=== PATIENT | male | born 1960 | race African-American/Black ===

== ENCOUNTER 2016-10-18 19:39 | Inpatient (IN) | payer OTHER ==
[~2016-10-18] VITALS: Ht 188 cm; Wt 63.3 kg
--- NOTE | ~2016-10-18 | HC ---
[facility] [place] [address] CONSULTATION Name: STACY PATEL Room #: 452-P [facility] IN M.R.#: [id number] Admission: 10/18/16 Attend Phys: Sara West MD Discharge: 10/24/16 Date of : 58 Report #: [id number] THIS REPORT FOR: //name// CC: Sujit West PULMONARY CONSULTATION PRIMARY PHYSICIAN: Sara West MD REASON FOR REFERRAL: Acute on chronic respiratory failure. HISTORY OF PRESENT ILLNESS: The patient is a 56-year-old -[place] male who was transferred to the Emergency Room with fever, tachycardia, and respiratory distress. Chest x-ray the ER showed right-sided infiltrates. The patient is admitted for pneumonia. A pulmonary consultation was requested. The patient is not able to provide history. Most of the history is obtained from the records. According to the records, the patient has sustained an anoxic brain injury following cardiac arrest. He has been on vent dependent ever since. A tracheostomy has been placed. The patient has a history of substance abuse including PCP. According to records, the patient was in his usual state of health until the evening of admission, the patient was found to have febrile illness with temperature of 103.8 degrees Fahrenheit, pulse rate of 160, respiratory rate around 40s. He does have DPOA, which is his father. PAST MEDICAL HISTORY: As mentioned above including history of polysubstance abuse including PCP, cardiac arrest, sustaining anoxic brain injury, chronic respiratory failure on mechanical ventilation, status post tracheostomy, PEG tube placement. ALLERGIES: None to medications. MEDICATIONS ON TRANSFER: Include clonidine, Pepcid, Augmentin. FAMILY HISTORY: Noncontributory. SOCIAL HISTORY: As above, otherwise unknown. REVIEW OF SYSTEMS: Deferred. [facility] [address] [place] [address] CONSULTATION Name: STACY PATEL Room #: 452-P [facility] IN .Tony.#: [id number] Admission: 10/18/16 Attend Phys: Sara West MD Discharge: 10/24/16 Date of : 58 Report #: [id number] PHYSICAL EXAMINATION: GENERAL: This patient is not able to provide history. VITAL SIGNS: Temperature was 103.5 degrees Fahrenheit, pulse is 120, respiratory rate is 24, blood pressure is 100/73 mmHg, saturation 98%. HEENT: Normocephalic, atraumatic. NECK: Supple, without any lymphadenopathy or thyromegaly, status post tracheostomy. CHEST: Breath sounds are coarse bilaterally. CARDIOVASCULAR: Heart sounds regular rhythm and rate, no murmurs or gallop. ABDOMEN: Soft, nontender, no organomegaly or masses felt. GENITOURINARY AND RECTAL: Deferred. EXTREMITIES: No cyanosis, clubbing, edema. MUSCULOSKELETAL: Remarkable for marked muscle atrophy with contractures. LABORATORY DATA: Chest x-ray shows a right mid lung field infiltrates. Arterial blood gas revealed pH 7.47, pCO2 of 31, pO2 of 113 on FiO2 of 50%. WBC is 5300 with a 13% bandemia. Platelets are normal. Hemoglobin is 12.6. Electrolytes: Sodium 135, potassium 4.8, chloride 98, CO2 is 25, BUN is 16, creatinine is 0.9. IMPRESSION: 1. Febrile illness in this 56-year-old male with a history of anoxic brain injury, cardiac arrest, now with chronic respiratory failure. Chest x-ray shows right-sided infiltrates. The patient likely has pneumonia. Aspiration ____ gram-negative is suspected. 2. Acute on chronic respiratory failure due to above. He has a tracheostomy tube placed. We will continue mechanical ventilation. Gastric ____ is adequate on FiO2 of 60%. 3. History of cardiac arrest sustaining anoxic brain injury with persistent encephalopathy, although it is felt to be poor. 4. Muscle atrophy due to above. RECOMMENDATION: We would recommend broad-spectrum antibiotics to cover for nosocomial infections including possible aspiration. Gram-negative, anaerobe cover will be helpful. We will continue mechanical ventilation. Wean O2 for saturation 90%. DVT and GI prophylaxis will be addressed. Nutritional support will be instituted once medically stable. Thank you for this consultation. <ELECTRONICALLY SIGNED> By: Chai Kamara MD 10/24/16 1634 [id number] 1735 Chai Kamara MD /nt
--- NOTE | ~2016-10-18 | EKG ---
[place] [address] [facility] [place] [address] ELECTROCARDIOGRAM REPORT Name: DMITRIYTOMMYSTACY Room #: 240-P ADM IN M.R.#: [id number] Admission: 10/18/16 Attend Phys: Sara West MD Discharge: Date of : 58 Report #: [id number] THIS REPORT FOR: //name// [facility] ED Test Date: 2016-10-18 Test Time: 19:44:19 Pat Name: STACY PATEL Department: Room: 240 P Gender: M Enterprise Project Manager: MICHAEL : 1960 Requested By: Sara West Order Number: [id number] MD: Dheeraj Arthur Measurements Intervals [place] Rate: 174 P: 74 DE: 95 QRS: -40 QRSD: 80 T: 21 QT: 278 QTc: 473 Interpretive Statements Supraventricular tachycardia Left axis deviation RSR' in V1 or V2, probably normal variant ST depression, probably rate related Baseline wander in lead(s) V3 No previous ECG available for comparison Electronically Signed On 10-19-2016 14:24:14 ELECTRONIC DATA PROCESSING AUDITOR by Dheeraj Arthur [email or web address] <ELECTRONICALLY SIGNED> By: Dheeraj Arthur MD, [facility] 10/19/16 1424 194 43 Dheeraj Arthur MD, [facility] /EPI
--- NOTE | ~2016-10-18 | HC ---
[facility] [place] [address] CONSULTATION Name: STACY PATEL Room #: 452-P ADM IN M.R.#: [id number] Admission: 10/18/16 Attend Phys: Sara West MD Discharge: Date of : 58 Report #: [id number] THIS REPORT FOR: //name// CC: Sujit West INFECTIOUS DISEASE CONSULTATION REASON FOR CONSULTATION: I was asked to evaluate the patient concerning fever. HISTORY OF PRESENT ILLNESS: The patient was a 56-year-old with anoxic encephalopathy who has been in a chronic vegetative state at [facility]. He remains on the ventilator. He has a PEG tube and an indwelling Barrientos catheter. The patient is unable to give any details. Has had his PEG tube exchanged on 09/22/2016. Developed fever and tachycardia with respiratory distress on 10/18/2016 and was admitted for further evaluation. He was found to have a right lower lobe pneumonia treated with vancomycin and Zosyn. Cultures are still pending by growing gram-negative bacilli from his sputum. Blood cultures remain negative. Urinalysis was unremarkable. He has had no diarrhea or evidence of decubiti. No reported seizure activity. PAST MEDICAL HISTORY: Anoxic brain injury, history of PCP intoxication, substance abuse, cardiac arrest, hypertension, tracheostomy, PEG tube placement. He is on chronic ventilatory requirements. SOCIAL HISTORY: Otherwise unremarkable. FAMILY HISTORY: Not available. REVIEW OF SYSTEMS: As noted above. PHYSICAL EXAMINATION: VITAL SIGNS: He is afebrile; maximum temperature was 101.2 degrees today. His maximum temperature on admission was 102.4 degrees on 10/28/2015. GENERAL: He was nonresponsive. He was in the position. He had contractures of both upper and lower extremities. SKIN: Was intact, no adenopathy. Tracheostomy site was unremarkable. EXTREMITIES: Peripheral IV unremarkable in his upper extremity. LUNGS: Consolidation was heard in the right base posteriorly. CARDIOVASCULAR: Regular without murmur. ABDOMEN: Was soft. PEG site was unremarkable. GENITOURINARY: External genitalia unremarkable with indwelling Barrientos catheter. LABORATORY STUDIES: Sodium 138, potassium 3.3, bicarbonate 22, creatinine 0.6, hemoglobin 8.5, white count 7.4, platelet count 228,000. Vancomycin level 10, [address] [address] CONSULTATION Name: [facility] Room #: [address] [place] [address] IN M.R.#: [id number] Admission: 10/18/16 Attend Phys: Sara West MD Discharge: Date of : 58 Report #: [id number] urinalysis unremarkable. Urine legionella strep pneumo antigen negative. Blood cultures negative. Sputum gram-negative bacilli. No influenza testing done. MRSA screen negative. Chest x-ray, right lower lobe infiltrate. IMPRESSION: A 56-year-old with right lower lobe pneumonia, chronic vent gram-negative organism with persistent fever. I suspect pulmonary source. We will also screen liver function and pancreas levels. Change his IV antibiotics to meropenem and see if this has better activity against the organism from his sputum pending final culture results. <ELECTRONICALLY SIGNED> By: Yong Orozco MD 10/22/16 1027 1644 1820 Yong Orozco MD /nt
--- NOTE | ~2016-10-18 | D ---
[facility] [place] [address] DISCHARGE SUMMARY Name: STACY PATEL Room #: 452-P [facility] IN M.R.#: [id number] Admission: 10/18/16 Attend Phys: Sara West MD Discharge: 10/24/16 Date of : 58 Report #: [id number] THIS REPORT FOR: //name// CC: Sujit West FINAL DIAGNOSES: 1. Healthcare-associated pneumonia. 2. Fever. 3. Chronic ventilator dependence. 4. Chronic respiratory failure. 5. Persistent vegetative state. 6. Hypertension. HOSPITAL COURSE: The patient was admitted from his shelter with fever. X-ray showed a right lower lobe pneumonia. He was treated for healthcare-associated pneumonia. There was a report of vomiting at the facility and he likely had an aspiration pneumonia. No definitive organism was cultured to identify the suspect bug. He still had some low-grade temperature to approximately 100. Dr. Orozco saw him in consultation and adjusted antibiotics. He remained Barrientos and ventilator dependent and total care as usual. He has had a previous brain injury and is in a persistent vegetative state. His blood pressure was elevated and Coreg was added. PHYSICAL EXAMINATION: GENERAL: On the day of discharge, he was at his usual neurologic level, with no significant responses. VITAL SIGNS: Temperature 37.2, pulse 95, respirations 17, blood pressure 135/89 and O2 sat 95% on the ventilator. LUNGS: Clear. HEART: Regular. ABDOMEN: Soft. EXTREMITIES: Showed no edema. He has contractures throughout the extremities. DISPOSITION: He will return to [facility] ventilator unit. Total care ventilator status to remain. No chance of weaning tube feeding and water flushes. I will continue Coreg 12.5 mg b.i.d., Tylenol 650 mg t.i.d., Pepcid and supportive measures. I will ask Dr. Yong Orozco to clarify any further antibiotics for transfer. <ELECTRONICALLY SIGNED> By: Aguila Zee MD 10/24/16 1636 0820 1000 Aguila Zee MD /nt
--- NOTE | ~2016-10-18 | H ---
[facility] [place] [address] HISTORY AND PHYSICAL Name: STACY PATEL Room #: 452-P [facility] IN M.R.#: [id number] Admission: 10/18/16 Attend Phys: Sara West MD Discharge: 10/24/16 Date of : 58 Report #: [id number] THIS REPORT FOR: //name// CC: Sujit West DATE OF SERVICE: 10/18/2016 ATTENDING PHYSICIAN: Sujit Orozco MD. CHIEF COMPLAINT: Fever, tachycardia, and respiratory distress. HISTORY OF PRESENT ILLNESS: This is a 56-year-old gentleman, who has a history of anoxic brain injury and respiratory failure, who has been on the ventilator. He was at [facility] and was noted to have fever with tachycardia and respiratory distress. He was noted to have decreasing oxygen saturation, and was requiring high flow oxygen. The patient was noted to have a temperature of 103. The patient was seen in the emergency room, and on evaluation, he was noted to have new pneumonia with respiratory failure. The patient has now been admitted to the intensive care unit and on IV antibiotics and on the ventilator. He is relatively stable this morning, and his pulse rate is in the 110s, and he is on the ventilator. He does not appear to be in any distress. PAST MEDICAL HISTORY: Significant for history of acute respiratory failure, anoxic brain injury, cardiac arrest, hypertension, history of PCP intoxication, and substance abuse. Tracheostomy and dysphagia. MEDICATIONS: He was on at the [facility] was Augmentin, clonidine, Pepcid, and Tylenol p.r.n. He is not known to be medications. SOCIAL HISTORY: Not known. There is history of PCP use and substance abuse. REVIEW OF SYSTEMS: Not possible. PHYSICAL EXAMINATION: GENERAL: Middle-aged gentleman, who was in bed, did not appear to be in distress. He was unresponsive, but appeared to be in no distress. VITAL SIGNS: His pulse was 111, respiration rate of 18, blood pressure was 115/86. NECK: The patient had a tracheostomy tube. The patient is on the ventilator. LUNGS: Coarse breath sounds bilaterally. HEART: First and second heart sound, which is tachycardic. ABDOMEN: Soft. The patient had a PEG tube in place, and it was nontender. EXTREMITIES: Did not reveal any edema. LABORATORY DATA: On admission, showed pH of 7.4, pCO2 of 31, pO2 of 113, on [facility] [address] [place] [address] HISTORY AND PHYSICAL Name: STACY PATEL Room #: 452-P [facility] IN [facility]#: [id number] Admission: 10/18/16 Attend Phys: Sara West MD Discharge: 10/24/16 Date of : 58 Report #: [id number] FIO2 of 60%. Sodium was 135, potassium 4.8, chloride of 98, bicarbonate of 25, BUN was 16, creatinine of 0.7. Lactic acid was 2.7. White cell count was 5.3, hemoglobin of 12.6, hematocrit of 38.7, and platelet count of 351. Urine was clear. Blood cultures were pending. ASSESSMENT: 1. Respiratory failure. 2. Pneumonia. 3. Anoxic brain injury. 4. Tachycardia. PLAN: To continue with his IV fluids, his IV antibiotics, and to continue on the ventilator. We will have a pulmonary consultation to manage his ventilator and restart his PEG tube feeds. <ELECTRONICALLY SIGNED> By: Sara West MD 10/30/16 1606 0925 1106 Sara Wets MD /nt
[~2016-10-18 19:39] MED LIST: AUGMENTIN 875875 MG PO; CLONIDINE0.1 PER TUBE; DIFLUCAN200 MG PO; ENOXAPARIN40 MG/0.1 SUBQ; PEPCID20 MG PO; VANCOMYCIN HCL1 GM IV; ZOSYN 3.3753.375 GM IV
[2016-10-18 20:11] LABS: HEMATOCRIT 38.7 % (42.0-52.0); HEMOGLOBIN 12.6 gm/dL (14.0-18.0); MCH 22.9 pg (26.0-34.0); MCHC 32.5 % (28.0-37.0); MCV 70.5 fL (80.0-100.0); PLATELET COUNT 351 thou/uL (150-400); RBC 5.49 mil/uL (4.50-6.00); RDW 15.5 % (10.5-14.5); WBC 5.3 thou/uL (4.0-11.0)
[2016-10-18 20:12] LABS: MANUAL DIFF YES
[2016-10-18 20:26] LABS: CALCIUM 9.7 mg/dL (8.5-10.1); CREATININE 0.7 mg/dL (0.6-1.3); POTASSIUM 4.8 mmol/L (3.5-5.1)
[2016-10-18 20:26] LABS: URINE BILIRUBIN NEGATIVE (Negative); URINE BLOOD NEGATIVE (Negative); URINE COLOR YELLOW; URINE GLUCOSE-RANDOM* NEGATIVE (Negative); URINE KETONES NEGATIVE (Negative); URINE LEUKOCYTES-REFLEX NEGATIVE (Negative); URINE PROTEIN (DIPSTICK) NEGATIVE (Negative); URINE SPECIFIC GRAVITY 1.025 (1.003-1.035); URINE UROBILINOGEN 0.2 E.U./dl (0.2-1.0)
[2016-10-18] MEDS ORDERED: PEPCID40 MG PO (20:42)
[2016-10-18 20:44] LABS: ABSOLUTE NEUTROPHILS 3.7 thou/uL (1.4-8.2); HYPOCHROMASIA 1+; IMMATURE MONONUCLEARS 1 %; TOTAL CELL COUNT 100
[2016-10-18 20:45] LABS: ANISOCYTOSIS 1+; LARGE PLATELETS OCCASIONAL
[2016-10-18] MEDS ORDERED: NON-ASPIRIN325 MG PO (20:45)
[2016-10-18 20:49] LABS: ABG SAMPLE TYPE ARTERIAL; BE(vivo) -0.4 mmol/L (-2 to +3); HCO3 22.4 mmol/L (22.0-26.0); LACTATE 2.41 mmol/L (0.5-2.0); O2(CT) 17.4 mL/dL (15.0-23.0); O2Hb 97.9 % (92.0-98.0); PCO2 31.4 mmHg (35.0-45.0); PO2 113.7 mmHg (80.0-100.0); pH 7.472 (7.360-7.450); sO2 98.4 % (92.0-98.0); tCO2 23.4 mmol/L (24.0-30.0)
[2016-10-18 20:51] LABS: STICK SITE R.RADIAL; TIDAL VOLUME 500 ml
[2016-10-19] VITALS (39 sets, daily range): BP systolic 102–138; BP diastolic 69–103
[2016-10-20 04:00] VITALS: BP 129/73
[2016-10-20 07:25] LABS: CALCIUM 8.9 mg/dL (8.5-10.1); CREATININE 0.6 mg/dL (0.6-1.3); POTASSIUM 3.3 mmol/L (3.5-5.1)
[2016-10-20 07:45] VITALS: BP 135/88
[2016-10-20 09:32] LABS: HEMATOCRIT 26.2 % (42.0-52.0); MCH 23.1 pg (26.0-34.0); MCHC 32.3 % (28.0-37.0); MCV 71.5 fL (80.0-100.0); RBC 3.67 mil/uL (4.50-6.00); WBC 7.4 thou/uL (4.0-11.0)
[2016-10-20 09:39] LABS: HEMOGLOBIN 8.5 gm/dL (14.0-18.0)
[2016-10-20 12:00] VITALS: BP 125/81
[2016-10-20 15:45] VITALS: BP 131/81
[2016-10-20 19:23] VITALS: BP 156/101
[2016-10-21 02:36] VITALS: BP 148/93
[2016-10-21 08:00] VITALS: BP 144/98
[2016-10-21 16:30] VITALS: BP 163/96
[2016-10-21 18:34] LABS: ALBUMIN 2.3 g/dL (3.4-5.0); ALKALINE PHOSPHATASE 61 U/L (46-116); DIRECT BILIRUBIN < 0.1 mg/dL (<0.1-0.3); SGOT 10 U/L (15-37); SGPT 17 U/L (30-65); TOTAL BILIRUBIN 0.2 mg/dL (<0.1-1.0); TOTAL PROTEIN 6.9 g/dL (6.4-8.2)
[2016-10-21 19:36] VITALS: BP 125/79
[2016-10-22 03:36] VITALS: BP 130/83
[2016-10-22 05:38] LABS: CREATININE 0.5 mg/dL (0.6-1.3); POTASSIUM 3.8 mmol/L (3.5-5.1)
[2016-10-22 05:39] LABS: ABSOLUTE NEUTROPHILS 4.8 thou/uL (1.4-8.2); BASOPHILS 0.3 % (0.0-2.0); HEMATOCRIT 29.5 % (42.0-52.0); HEMOGLOBIN 9.6 gm/dL (14.0-18.0); MCH 22.7 pg (26.0-34.0); MCHC 32.5 % (28.0-37.0); MCV 69.9 fL (80.0-100.0); MONOCYTES 6.6 % (1.0-8.0); PLATELET COUNT 262 thou/uL (150-400); POLYS 73.1 % (36.0-66.0); RBC 4.23 mil/uL (4.50-6.00); RDW 15.6 % (10.5-14.5); WBC 6.5 thou/uL (4.0-11.0)
[2016-10-22 05:40] LABS: MANUAL DIFF NO
[2016-10-22 07:24] VITALS: BP 139/87
[2016-10-22 07:40] LABS: ANISOCYTOSIS 1+; HYPOCHROMASIA 1+; MICROCYTES 1+
[2016-10-22 11:17] VITALS: BP 155/104
[2016-10-22 14:30] VITALS: BP 149/103
[2016-10-22 16:10] VITALS: BP 128/90
[2016-10-22 19:18] VITALS: BP 141/99
[2016-10-23 04:13] VITALS: BP 138/95
[2016-10-23 07:43] VITALS: BP 148/96
[2016-10-23 08:16] LABS: ABSOLUTE NEUTROPHILS 3.6 thou/uL (1.4-8.2); BASOPHILS 0.5 % (0.0-2.0); EOSINOPHILS 3.2 % (0.0-3.0); HEMATOCRIT 30.1 % (42.0-52.0); HEMOGLOBIN 9.8 gm/dL (14.0-18.0); LYMPHOCYTES 22.7 % (24.0-44.0); MCH 22.7 pg (26.0-34.0); MCHC 32.5 % (28.0-37.0); MCV 69.9 fL (80.0-100.0); MONOCYTES 9.7 % (1.0-8.0); PLATELET COUNT 274 thou/uL (150-400); POLYS 63.9 % (36.0-66.0); RBC 4.31 mil/uL (4.50-6.00); RDW 15.4 % (10.5-14.5); WBC 5.6 thou/uL (4.0-11.0)
[2016-10-23 08:17] LABS: MANUAL DIFF NO
[2016-10-23 08:22] LABS: CALCIUM 9.3 mg/dL (8.5-10.1); CREATININE 0.5 mg/dL (0.6-1.3); POTASSIUM 3.9 mmol/L (3.5-5.1)
[2016-10-23 11:02] VITALS: BP 134/68
[2016-10-23 15:13] VITALS: BP 136/73
[2016-10-23 19:29] VITALS: BP 116/85
[2016-10-24 03:47] VITALS: BP 135/89
[2016-10-24] MEDS ORDERED: CARVEDILOL12.5 MG PO (08:15)
[2016-10-24] MEDS ORDERED: ACETAMINOPHEN325 M1 PO (08:15)
[2016-10-24 09:19] VITALS: BP 132/97
== END 2016-10-24 11:20 | DRG 207 ==
LOC: ER 19:39 → EROBS 20:44 → 4W 20:44 → ICU 23:31 → 4W 10-19 22:34 → EDBD 10-24 11:20 → 4W 10-24 11:20
PROVIDERS: Emergency Medicine; Internal Medicine; Internal Medicine Geriatric Medicine; Internal Medicine Pulmonary Disease; Specialist
PROC: 5A1955Z Respiratory Ventilation, Greater than 96 Consecutive Hours (ICD-10-PCS; principal; 2016-10-22)
DX: J69.0 Pneumonitis due to inhalation of food and vomit (principal); J96.21 Acute and chronic respiratory failure with hypoxia; G93.1 Anoxic brain damage, not elsewhere classified; R40.3 Persistent vegetative state; Z99.11 Dependence on respirator [ventilator] status; I10 Essential (primary) hypertension; M62.50 Muscle wasting and atrophy, not elsewhere classified, unspecified site; R00.0 Tachycardia, unspecified; E86.0 Dehydration; F19.10 Other psychoactive substance abuse, uncomplicated; Z87.820 Personal history of traumatic brain injury; Z23 Encounter for immunization; Z93.0 Tracheostomy status; Z93.1 Gastrostomy status; Z86.74 Personal history of sudden cardiac arrest
CPT/HCPCS: 10045; 10047; 10078